=== PATIENT | female | born 1950 | race Caucasian/White ===

== ENCOUNTER → 2017-08-28 | Outpatient (CLI) | payer MEDICARE, BC ==
[~2017-08-28] MED LIST: ADVIL200 MG PO; CALCIUM 600600 MG PO; CENTRUM SILVER1 CTB PO; EPA/GLA1 SGL PO; LEVOXYL0.05 MG PO; MIRALAX PA17 GM/Dose PO; PREMARIN VAG42.5 GM VG; PROBIOTIC FORMU1 CAP PO; [UNRECOGNIZED DRUG - REMARK] PO
== END ==
LOC: MC.RAD 08:52
DX: Z12.31 Encounter for screening mammogram for malignant neoplasm of breast (principal)

== ENCOUNTER → 2018-09-29 | Outpatient (CLI) | payer MEDICARE, BC | LOC: MC.RAD 13:17 | DX: Z12.31 Encounter for screening mammogram for malignant neoplasm of breast (principal) ==

== ENCOUNTER → 2019-10-19 | Outpatient (CLI) | payer MEDICARE, BC | LOC: MC.RAD 13:04 | DX: Z12.31 Encounter for screening mammogram for malignant neoplasm of breast (principal) ==